=== PATIENT | female | born 1995 | race Caucasian/White ===

== ENCOUNTER 2017-12-20 19:05 | Emergency (ER) | payer SELFPAY ==
[2017-12-20 19:29] VITALS: BP 132/72
== END 2017-12-20 20:41 | disposition left against medical advice (07) ==
LOC: ED 19:05
DX: O46.90 Antepartum hemorrhage, unspecified, unspecified trimester (principal); Z3A.00 Weeks of gestation of pregnancy not specified; Z53.21 Procedure and treatment not carried out due to patient leaving prior to being seen by health care provider

== ENCOUNTER 2021-01-23 05:22 | Inpatient (IN) | payer MEDICAID, OTHER ==
--- NOTE | 2021-01-22 20:06 | History and Physical Report ---
History of Present Illness Date of examination: 01/19/21 Chief complaint: Primary section d/t breech presentation History of present illness: Past History : 2 Term Births: 1 Premature Births: 0 Living Children: 1 Para: 1 Mult. Births: 0 Prev : 0 Aborta: 0 Elect. Ab: 0 Spont. Ab: 0 Ectopics: 0 # 1 Delivery date: 06/01/2018 Weeks Gestation: 40 Delivery type: Vaginal Anesthesia type: epidural Delivery location: [facility] Infant Sex: male weight: 7.63 Comments: GBS+ Past Medical History: Reviewed history from 10/31/2017 and no changes required: Negative Past Medical History Past Surgical History: Reviewed history from 06/27/2020 and no changes required: negative Past Medical History Anesthesia Complications: negative Anemia: negative Autoimmune Disorder: negative Bleeding Disorder: negative Blood Transfusions: negative Breast Disease: negative Diabetes: negative Heart Disease: negative Hypertension: negative Hepatitis/Liver Disease: negative Kidney Disease/UTI: negative Neurologic/Epilepsy/Migraines: negative Phlebitis/Varicosities: negative Psychiatric: negative Pulmonary Disease/Asthma: negative Thyroid Disease: negative Hospitalizations: negative 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 of genital herpes: no Partner hx. of genital herpes: no Rash, Viral, or Febrile illness since last LMP? no Varicella/Chicken Pox Status: No TB Risk: no Genetic History Congenital Heart Defect: Mom: no Dad: no Edna Disease: Mom: no Dad: no Thalassemia Mom: no Dad: no Neural Tube Defect Mom: no Dad: no Down's Syndrome Mom: no Dad: no Felipe-Sachs Mom: no Dad: no Sickle Cell Disease/Trait Mom: yes Dad: no Comments: Cousin Hemophilia Mom: no Dad: no Muscular Dystrophy Mom: no Dad: no Cystic Fibrosis Mom: no Dad: no [place] Chorea Mom: no Dad: no Mental Retardation Mom: no Dad: no Fragile X Mom: no Dad: no Other Genetic/Chromosomal Disorder Mom: no Dad: no Child w/other defect Mom: no Dad: no Enviromental Exposures Enviromental Exposures Reviewed Xray Exposure: no Medication, drug, or alcohol use since LMP: no Chemical/Other Exposure: no Exposure to Cat Liter: no Hx of Parvovirus (Fifth Disease): no Occupational Exposure to Children: none Active Medications (reviewed today): PLUS 27-1 MG ORAL TABLET ( VIT-FE FUMARATE-FA) 1 po Current Allergies (reviewed today): * AMOXICILLIN (Critical) Physical Exam General appearance: well nourished, healthy appearing, no distress Chest/Lungs: respiratory effort normal, lungs clear to auscultation Cardiovascular: normal rate and rhythm Past History Social history: no significant social history - Obstetrical History Expected Date of Delivery: 01/23/21 Actual Gestation: 39 Week(s) 6 Day(s) : 2 Para: 1 Number of Living Children: 1 Medications and Allergies Allergies Allergy/AdvReac Type Severity Reaction Status Date / Time Penicillins Allergy Itching Verified 12/20/17 19:26 Home Medications Medication Instructions Recorded Confirmed Last Taken Type Lidocain2.5%/Prilocai2.5% [Emla] 5 gm TP ONCE #1 tube 06/03/18 Unknown Rx Active Meds: Active Medications Citric Acid/Sodium Citrate (Bicitra Oral Liqd 30ml) 30 ml PO ONCE ONE Stop: 01/23/21 06:31 Famotidine (Famotidine 20 Mg/2 Ml Inj) 20 mg IV ONCE ONE Stop: 01/23/21 06:31 Lactated Ringer's (Lactated Ringers) 1,000 mls @ 2,250 mls/hr IV PREOP YESICA Stop: 01/24/21 05:57 Gentamicin Sulfate / Sodium (Chloride) 100 mls @ 200 mls/hr IV PREOP ONE; Protocol Stop: 01/23/21 05:59 Oxytocin/Sodium Chloride (Pitocin/Ns 30 Unit/500ml) 30 units in 500 mls @ 0 mls/hr IV TITR YESICA; Protocol Clindamycin HCl (Cleocin 900 Mg/50 Ml) 900 mg in 50 mls @ 100 mls/hr IV PREOP NR; Protocol Metoclopramide HCl (Metoclopramide 10 Mg/2 Ml Inj) 10 mg IV ONCE ONE Stop: 01/23/21 06:31 Results All other labs normal. Assessment and Plan - Patient Problems (1) 40 weeks gestation of Status: Acute (2) Breech presentation Status: Acute Plan to address problem: Consent reviewed and signed .. The risks and alternatives for this surgery were reviewed with the patient. She was informed of possible bleeding, infection, injury to bowel, bladder, ureters or other adjacent organs.She was informed she may require a C/S with all of her next . The patient was instructed/informed the following: The normal length of hospital stay for this procedure. Nothing to eat or drink after midnight the evening prior to surgery. Wound care instructions given. Infection precautions reviewed, patient to call for any signs or symptoms of infection. The usual discomforts associated with this procedure were detailed. Proper use of pain medicines was reviewed. Patient was given ample opportunity to have all her questions answered before signing informed consent.
[2021-01-23] MEDS ORDERED: GENTAMICIN 0 MG in SODIUM CHLORIDE 0.9% 100 ML IV ONE (05:30)
[2021-01-23] MEDS ORDERED: OXYTOCIN DRIP 30 UNITS/500 ML BAG IV SCH ×2 (05:30→14:21)
[2021-01-23] MEDS ORDERED: GENTAMICIN/NS 120MG/100ML 120 MG/100 ML BAG IV ONE (05:45)
[2021-01-23] MEDS: LACTATED RINGERS 1,000 ML IV SCH ×2 (05:53→06:30)
[2021-01-23] MEDS ORDERED: FAMOTIDINE 20 MG/2 ML INJ IV ONE (06:30)
[2021-01-23] MEDS ORDERED: METOCLOPRAMIDE 10 MG/2 ML INJ IV ONE (06:30)
[2021-01-23] MEDS ORDERED: BICITRA ORAL LIQD 30ML PO ONE (06:30)
[2021-01-23 06:35] LABS: Hematocrit 34.6 % (30.3-42.9); Hemoglobin 11.4 gm/dl (10.1-14.3); Mean Corpuscular HGB Conc 33 % (30-34); Mean Corpuscular Volume 82 fl (79-97); Platelet Count 140 K/mm3 (140-440); Red Cell Distribution Width 15.8 % (13.2-15.2)
[2021-01-23] MEDS ORDERED: ONDANSETRON 4 MG/2 ML INJ ONE (06:50)
[2021-01-23] MEDS ORDERED: KETOROLAC 30 MG/1 ML INJ ONE (06:50)
[2021-01-23] MEDS ORDERED: dexAMETHasone 20 MG/5 ML VIAL ONE (06:50)
[2021-01-23] MEDS ORDERED: BUPIVACAINE/PF (0.5%) 5 MG/1 ML 30 ML VIAL INFILTRATI ONE (06:50)
--- NOTE | 2021-01-23 06:53 | Ultrasound Report ---
Limited of the Ultrasound HISTORY: presentation. TECHNIQUE: Grayscale and color imaging performed. COMPARISON: None IMPRESSION: Single viable intrauterine gestation with breech presentation and heart rate of 134 bpm. Signer Name: Rafi Cheng MD Signed: 01/23/2021 6:48 AM Workstation Name: [id number]
--- NOTE | 2021-01-23 06:59 | Anesthesia Day of Surgery ---
Anesthesia Day of Surgery - Day of Surgery Patient Examined: Yes Patient H&P Reviewed: Yes Patient is NPO: Yes Beta Blockers: No Cardiac Clearance: No Pulmonary Clearance: No Peterson's Test: N/A
--- NOTE | 2021-01-23 06:59 | Anesthesia Consultation ---
Anesthesia Consult and Med Hx Date of service: 01/23/21 - Airway Anesthetic Teeth Evaluation: Good ROM Head & Neck: Adequate Mental/Hyoid Distance: Adequate Mallampati Class: Class III Intubation Access Assessment: Possibly Difficult - Pulmonary Exam CTA: Yes - Cardiac Exam Cardiac Exam: RRR - Pre-Operative Health Status ASA Pre-Surgery Classification: ASA2 Proposed Anesthetic Plan: Spinal - Pulmonary Hx Smoking: No Hx Asthma: No COPD: No Hx Pneumonia: No Hx Sleep Apnea: No - Cardiovascular System Hx Hypertension: No Hx Heart Attack/AMI: No Hx Angina: No - Central Nervous System Hx Seizures: No - Gastrointestinal Hx Gastroesophageal Reflux Disease: No - Endocrine Hx Renal Disease: No Hx End Stage Renal Disease: No Hx Liver Disease: No Hx Insulin Dependent Diabetes: No Hx Non-Insulin Dependent Diabetes: No - Hematic Hx Anemia: No - Other Systems Hx Alcohol Use: No Hx Obesity: Yes
[2021-01-23] MEDS ORDERED: HYDROmorphone 1 MG/1 ML INJ IV PRN (08:00)
[2021-01-23] MEDS ORDERED: PROMETHAZINE 25 MG TAB PO PRN (08:00)
[2021-01-23] MEDS ORDERED: NALOXONE 0.4 MG/1 ML INJ IV PRN ×2 (08:00→14:21)
[2021-01-23] MEDS ORDERED: diphenhydrAMINE 50 MG/ML VIAL IV PRN (08:00)
[2021-01-23] MEDS ORDERED: NalbUPHINE 10 MG/1 ML INJ IV PRN (08:00)
[2021-01-23] MEDS ORDERED: PROMETHAZINE 25 MG RECT SUPP PR PRN (08:00)
[2021-01-23] MEDS ORDERED: ONDANSETRON 4 MG/2 ML INJ IV PRN (08:00)
[2021-01-23] MEDS ORDERED: SODIUM CHLORIDE 0.9% IRR 1,500 ML BOTTLE IR ONE (08:02)
[2021-01-23] MEDS ORDERED: WATER FOR IRRIG STERILE 1,500 ML BOTTLE IR ONE (08:02)
[2021-01-23] MEDS ORDERED: ePHEDrine SULFATE 50 MG/1 ML INJ ONE (08:14)
[2021-01-23] MEDS ORDERED: PHENYLEPHRINE/NS 1,000 MCG/10 ML SYRINGE (OR USE) IV ONE (08:14)
[2021-01-23] MEDS ORDERED: LACTATED RINGERS 1,000 ML ONE (08:19)
[2021-01-23] MEDS ORDERED: GENTAMICIN 360 MG in SODIUM CHLORIDE 0.9% 100 ML IV SCH (08:30)
--- NOTE | 2021-01-23 09:31 | Operative Report ---
Operative Report Operative Report: Date of operation: 01/23/2021 Pre-operative diagnosis: 1. 40 weeks gestational age 2. Persistent breech presentation 3. Desires delivery 4. BMI 42.8 kg/mg Post-operative diagnosis: 1. 40 weeks gestational age 2. Persistent breech presentation 3. Desires delivery 4. BMI 42.8 kg/mg Procedure name(s): Primary low transverse uterine incision Surgeon: Maryam Keating MD Care Asst: Sushma Ramsey CST Anesthesia: Spinalepidural EBL: 700 mL Urine output: 100 mL of clear urine out at the end of the procedure Fluids: 1400 mL Findings: Liveborn female infant weight 7 Lbs. 2 oz. Apgars of 8 and 9 at one and 5 minutes Indications: [] Procedure: Patient was taking to the operating room. Combined spinal epidural anesthesia was placed. Patient was then prepped and draped in the usual sterile fashion Timeout was performed. Once an appropriate level of anesthesia was noted, a Pfannenstiel incision was made and extended the fascia which was incised and extended lateral direction. The overlying fascia was sharply dissected away from the underlying rectus muscles in the superior inferior direction. The midline was entered bluntly. Bladder blade was placed. Vesicouterine fold was incised with blunt dissection bladder flap was created. A transverse incision was made in the lower uterine segment and extended superolateral direction with finger fractionation. Copious clear fluid was noted. Infant was delivered from the neida breech position, with spontaneous cry and excellent tone. Mouth and nose bulb suctioned. Cord was doubly clamped and cut infant was given to the resuscitation team present. Placenta was delivered. The uterus was exteriorized and cleaned of any further placental tissue and products of conception. Uterine incision was approximated using 0 Vicryl in a running interlocking stitch followed by further suture of 0 Vicryl i n imbricating fashion. When hemostasis was noted the uterus was allowed back in the pelvic cavity. Pelvis was irrigated with warm normal saline. Surgicel was placed to ensure hemostasis. Once hemostasis was noted the rectus muscles were approximated using 3-0 Vicryl interrupted simple stitches 3. Once hemostasis was noted the fascia was approximated using 0 Vicryl simple running stitch. The incision was irrigated with warm saline, once hemostasis as noted, the subcuticular adipose tissue was reapproximated using 3-0 Vicryl in a simple running fashion. Skin was approximated using 4-0 Vicryl on a [place] needle in a subcuticular manner. Counts were correct x3. Patient tolerated the procedure well, she was taken to recovery room in stable condition.
--- NOTE | 2021-01-23 09:36 | Progress Note ---
Spinal Anesthesia Block - Spinal Anesthesia Block Start Time: 07:53 Stop Time: 08:05 Performed by:: JEANNINE ZARCO Procedure: Spinal anesthesia block is being performed for [C/S]. H&P, labs have been reviewed. Patient's questions and concerns have been answered. Informed consent has been performed. Timeout has was performed. Patient in sitting position on side of bed. Sterile prep and drape was performed. 3 mL 1% lidocaine skin wheal at L [3]-L [4]. Needle introducer advanced. 25-gauge spinal needle advanced, [+] CSF [-] blood. [Marcaine 10mg and Precedex 5mcg] Spinal dose was given. All needles removed. Patient tolerated procedure well.
--- NOTE | 2021-01-23 09:36 | Progress Note ---
Regional Anesthesia Block - Regional Anesthesia Block Start Time: :29 Stop Time: :36 Performed By:: JEANNINE ZARCO Procedure: Patient consented for TAP block for post surgical pain management. Patient identified, monitors placed, and time out performed. Mid axillary TAP identified bilaterally via ultrasound. Skin prepped bilaterally with [chlorhexidine] and [20g stimuplex] needle advanced to the TAP. 35ml [Marcaine 0.215% with 25mcg Pr ecedex and Decadron 5mg] injected under ultrasound guidance on the [left] side. 35ml [Marcaine 0.215% with 25mcg Precedex and Decadron 5mg] injected under ultrasound guidance on the [right] side. Negative aspiration every 5mL, Patient tolerated the procedure well. No apparent complications seen.
[2021-01-23] MEDS ORDERED: WITCH HAZEL/ GLYCERIN PAD TP PRN (14:21)
[2021-01-23] MEDS ORDERED: HYDROcodone/ACETAMINOPHEN 5-325 MG TAB PO PRN (14:21)
[2021-01-23] MEDS ORDERED: MORPHINE 2 MG/1 ML INJ IV PRN (14:21)
[2021-01-23] MEDS ORDERED: MORPHINE 4 MG/1 ML INJ IV PRN (14:21)
[2021-01-23] MEDS ORDERED: LANOLIN/ZINC/DIMETHICONE (LANSINOH) 7 GM TP PRN (14:21)
[2021-01-23] MEDS ORDERED: SIMETHICONE 80 MG CHEW TAB PO PRN (14:21)
[2021-01-23] MEDS ORDERED: D5W/LACTATED RINGERS 1,000 ML IV SCH (15:21)
[2021-01-23] MEDS: KETOROLAC 30 MG/1 ML INJ IV SCH (17:43)
[2021-01-23] MEDS: CLINDAMYCIN 600 MG/50 mL 600 MG/50 ML BAG IV SCH (18:00)
[2021-01-23 20:23] LABS: Hematocrit 32.9 % (30.3-42.9); Hemoglobin 10.7 gm/dl (10.1-14.3)
[2021-01-23] MEDS: ACETAMINOPHEN 500 MG TAB PO SCH (20:31)
[2021-01-24] MEDS: KETOROLAC 30 MG/1 ML INJ IV SCH ×2 (00:17→06:40)
[2021-01-24] MEDS: CLINDAMYCIN 600 MG/50 mL 600 MG/50 ML BAG IV SCH (00:18)
[2021-01-24] MEDS: ACETAMINOPHEN 500 MG TAB PO SCH ×2 (01:49→20:45)
[2021-01-24] MEDS ORDERED: TETANUS,DIPH,PERTUSS(ACELL) VACCINE 0.5 ML SYRINGE IM ONE (06:21)
--- NOTE | 2021-01-24 08:37 | Progress Note ---
Assessment and Plan VSSAF. Post Op H& H 10.7/32.9 Lochia scant, fundus firm. - Patient Problems (1) delivery delivered Current Visit: Yes Status: Acute Plan to address problem: Continue post op pathway. Advance diet and activity as tolerated. Anticipate discharge home tomorrow. Subjective - Subjective Date of service: 01/24/21 Principal diagnosis: Post Op day 1 Patient reports: appetite normal, voiding normally, pain well controlled, flatus, ambulating normally, no dizzy ambulation, no nauseated : bottle feeding Objective - Vital Signs Latest vital signs: Vital Signs Temp Pulse Resp BP BP Pulse Ox 01/24/21 07:10 18 01/24/21 06:40 16 01/24/21 05:15 98.4 F 61 18 126/70 97 01/24/21 03:10 98.1 F 65 18 105/54 98 01/24/21 02:49 18 01/24/21 01:49 18 01/24/21 00:47 18 01/24/21 00:17 18 01/23/21 21:59 98.2 F 72 16 108/59 98 01/23/21 21:31 18 01/23/21 18:07 16 01/23/21 17:43 16 01/23/21 16:55 98.4 F 77 18 109/67 97 01/23/21 10:54 98.2 F 69 16 119/59 99 01/23/21 10:20 97.5 F L 70 18 122/66 99 01/23/21 10:15 67 20 126/63 99 01/23/21 10:00 74 18 120/72 99 01/23/21 09:45 72 25 H 122/72 98 01/23/21 09:30 66 23 110/44 98 01/23/21 09:25 76 23 106/50 98 01/23/21 09:22 97.5 F L 75 25 H 114/32 98 Intake and Output 01/23/21 01/24/21 01/24/21 23:59 07:59 15:59 Intake Total 470 480 Output Total 800 700 Balance -330 -220 Intake: IV 50 CLEOCIN 600 MG/50 mL 600 50 mg In 50 ml @ 100 mls/hr IV Q8H [facility] Rx#:[id number] Intake, Free Water 420 480 Output: Urine 800 700 Indwelling Catheter 800 Void 700 Other: Total, Output Amount 800 300 - Exam Lungs: Present: Normal air movement Abdomen: Present: normal appearance, soft Uterus: Present: normal, firm Extremities: Present: normal Incision: Present: normal, dry, intact
[2021-01-24] MEDS ORDERED: IBUPROFEN 800 MG TAB PO PRN (09:20)
[2021-01-24] MEDS ORDERED: oxyCODONE /ACETAMINOPHEN 5-325MG TAB PO PRN (09:20)
--- NOTE | 2021-01-24 13:58 | Post Anesthesia Evaluation ---
- Post Anesthesia Evaluation Patient Participated: Yes Airway Patent: Yes Stable Respiratory Function: Yes Nausea/Vomiting: No Temp > 96.8F: Yes Pain Manageable: Yes Adequeate Hydration: Yes Anesthesia Complications: No Block Receding Appropriately: Yes Patient on Ventilator: No
[2021-01-25] MEDS: ACETAMINOPHEN 500 MG TAB PO SCH ×3 (06:10→14:22)
--- NOTE | 2021-01-25 07:26 | Discharge Summary ---
Providers - Providers Date of Admission: 01/23/21 05:22 Date of discharge: 01/25/21 Attending physician: CHE MACEDO 01/23/21 14:21 Consult to Business Assistant [CONS] Routine Reason For Exam: Primary care physician: CHE MACEDO Hospitalization Reason for admission: Primary C/S due to breech presentation Condition: Good Pertinent studies: H&H 10.7/32.9 Procedures: Primary C/S Hospital course: Uncomplicated C/S and Post Op course Disposition: DC-01 TO HOME OR SELFCARE Final Discharge Diagnosis (Prints w/discharge instructions): C/S Delivery Time spent for discharge: 25 min - Discharge Diagnoses (1) delivery delivered Status: Acute Core Measure Documentation - Palliative Care Palliative Care/ Comfort Measures: Not Applicable - Core Measures Any of the following diagnoses?: none Exam - Constitutional Vitals: Temp Pulse Resp BP Pulse Ox 98.3 F 70 18 120/78 97 01/25/21 01:52 01/25/21 01:52 01/25/21 01:52 01/25/21 01:52 01/25/21 01:52 General appearance: Present: no acute distress - EENT Eyes: Present: PERRL ENT: hearing intact, clear oral mucosa - Neck Neck: Present: supple, normal ROM - Respiratory Respiratory effort: normal Respiratory: bilateral: CTA - Cardiovascular Rhythm: regular - Extremities Extremities: pulses symmetrical, No edema - Abdominal General gastrointestinal: Present: soft, non-tender, non-distended, normal bowel sounds Female genitourinary: Present: normal - Integumentary Integumentary: Present: clear, warm, dry - Musculoskeletal Musculoskeletal: gait normal, strength equal bilaterally - Psychiatric Psychiatric: appropriate mood/affect, intact judgment & insight - Neurologic Neurologic: CNII-XII intact, moves all extremities - Additional findings Additional findings: Lochia scant, fundus firm, incision dry and intact. Plan Activity: advance as tolerated Diet: regular Wound: open to air, keep clean and dry Follow up with: CHE MACEDO MD [Primary Care Provider] - 7 Days (Congratulations! Please call [phone] to schedule an incision check in 1 week. Call for any questions or concerns. ) Prescriptions: Ibuprofen [Motrin 800 MG tab] 800 mg PO TID PRN #30 tablet PRN Reason: Pain oxyCODONE /ACETAMINOPHEN [Percocet 5/325 mg] 1 - 2 tab PO Q6HR PRN #14 tablet PRN Reason: Pain
[2021-01-25 10:09] VITALS: BP 112/75
== END 2021-01-25 14:59 | disposition home or self-care (01) | DRG 766 ==
LOC: APU 05:22 → OB 11:40
PROVIDERS: ADMIT Obstetrics & Gynecology; ATTEND Obstetrics & Gynecology
PROC: 10D00Z1 Extraction of Products of Conception, Low, Open Approach (ICD-10-PCS; principal; 2021-01-23)
PROC: 3E0234Z Introduction of Serum, Toxoid and Vaccine into Muscle, Percutaneous Approach (ICD-10-PCS; 2021-01-23)
DX: O32.1XX0 Maternal care for breech presentation, not applicable or unspecified (principal); Z37.0 Single live birth; O99.214 Obesity complicating childbirth; Z3A.39 39 weeks gestation of pregnancy; Z88.5 Allergy status to narcotic agent; Z79.899 Other long term (current) drug therapy; Z20.822 Contact with and (suspected) exposure to COVID-19; Z23 Encounter for immunization
CPT/HCPCS: 36415; 76815; 85014; 85018; 85027; 86592; 86850; 86900; 86901; G0378; J1100; J1885; J2370; J2405; J2765; J3490; J7120; J7121; U0003